=== PATIENT | female | born 1985 | race Two or more races ===

== ENCOUNTER 2024-12-20 12:27 | Emergency (ER) | payer MEDICAID, SELFPAY ==
[2024-12-20] VITALS (8 sets, daily range): BP systolic 119–125; BP diastolic 71–82; PULSE 82–99; RESP 16–18; TEMP 36.6–37.2; O2SAT 94–98; BMI 34.9
--- NOTE | 2024-12-20 12:47 | XR_ITS ---
Examination: AP chest single view Technique one AP portable upright chest single view Exam date and time: December 20, 2024 1256 hours INDICATIONS: Onset shortness of breath dyspnea today. FINDINGS: Normal heart size. Lungs are clear. The osseous structures are intact IMPRESSION: No active disease
--- NOTE | 2024-12-20 12:58 | EDNOTE_ITS ---
ED SOB =RME/HPI General Chief Complaint: Shortness of Breath/Dyspnea Stated Complaint: SOB Time Seen by Provider: 12/20/24 12:41 Arrival date/time: 12/20/24 12:27 RME / HPI RME / HPI Narrative: 39-year-old female patient with significant history of asthma, came in for evaluation regarding worsening shortness of breath and wheezing. Patient has been having worsening shortness of breath and wheezing for the last few weeks. Was seen in [place] emergency room last Tuesday and was prescribed prednisone 60 mg p.o. Patient is taking her asthma medications with good compliance. Patient denies any fever denies any cough denies any other complaints no medications taken prior to arrival. Related Data Previous Rx's ?Medication ?Instructions ?Recorded albuterol sulfate 90 mcg/actuation 2 puff inhalation Q 6HR PRN 06/12/17 aerosol inhaler (ProAir HFA) WHEEZING #1 inh albuterol sulfate 90 mcg/actuation 2 puff inhalation Q 6H #6.7 grams 03/18/18 aerosol inhaler prednisone 20 mg tablet 40 mg PO QDAY #12 tabs 12/20 Allergies Allergy/AdvReac Type Severity Reaction Status Date / Time paroxetine Allergy Unknown Verified 06/12/17 04:56 Review of Systems Review of Systems Narrative Review of Systems: Review of system reviewed and within normal limits except mentioned in HPI ED Exam Narrative Physical exam: VITAL SIGNS: Reviewed. GENERAL APPEARANCE: Alert and interactive, follows commands, no acute distress, HEAD AND FACE: Non-traumatic. ENT: PERRL, pink conjunctivitis, eyelid no trauma, Mucous membrane moist. NECK: Supple, nontender, no nuchal rigidity. CHEST: No tenderness, no crepitus, no paradoxical movement, no retractions. LUNGS: Symmetric, no rales, bilateral wheezing, no ronchi, no stridor, decreased breath sounds bilaterally. HEART: Regular rate, regular rhythm, no murmur, no gallops. ABDOMEN: Soft, positive bowel sounds, nondistended, no guarding, nontender, no rebound, no masses, RECTAL: Deferred. GENITAL: Deferred. NEUROLOGICAL: Gross motor function intact sensory function intact, Appropriate for age. MUSCULOSKELETAL: low back nontender, full range of motion. EXTREMITIES: Nontender, full range of motion. SKIN: Color pink, dry, no rash, no lacerations, no abrasions, no contusions. LYMPHATICS: Deferred. Course Quality Measures none Orders Category Date Time Status Bedside Influenza A&B Antigen Test NOW Care 12/20/24 12:47 Completed Continuous Pulse Oximetry NOW Care 12/20/24 12:47 Completed XR chest 1V portable Stat Exams 12/20/24 12:47 Completed ALBUTEROL RT 0.5ml [Proventil Rt 0.5ml] Med 12/20/24 12:47 Discontinued 10 mg INH X1 ONE Ipratropium [place] Rt Debi [Atrovent Rt Debi] Med 12/20/24 12:47 Discontinued 1 mg INH X1 ONE MethylPREDNISolone.* [SoluMEDROL Inj] Med 12/20/24 12:48 Discontinued 125 mg IVP X1 ONE Sodium Chloride Rt Debi 0.9% [NS Rt Debi 0.9%] Med 12/20/24 12:47 Active 3 ml INH PRN PRN Vital Signs Vital signs: Vital Signs Temperature 98.5 F 12/20/24 12:42 Pulse Rate 88 12/20/24 12:42 Respiratory Rate 18 12/20/24 12:42 Blood Pressure 122/71 12/20/24 12:42 Pulse Oximetry (%) 97 12/20/24 12:42 Oxygen Delivery Method Room Air 12/20/24 12:42 Shortness of Breath / Dyspnea MDM Narrative MDM Narrative:: 39-year-old female patient with significant history of asthma, came in for evaluation regarding worsening shortness of breath and wheezing. Patient has been having worsening shortness of breath and wheezing for the last few weeks. Was seen in [place] emergency room last Tuesday and was prescribed prednisone 60 mg p.o. Patient is taking her asthma medications with good compliance. Patient denies any fever denies any cough denies any other complaints no medications taken prior to arrival. I personally reviewed and interpreted the x-ray of this patient. There is no acute abnormalities found, no infiltrates no pneumothorax no hemothorax normal chest x-ray. Review of other structures was without significant abnormal findings also. I additionally reviewed the radiologist report and agree with the interpretation. Patient received Solu-Medrol IV , hour-long breathing treatment with significant improvement of symptoms. Patient was satting 96% on room air and told me that she is ready to go home. Yazidi Patient data External records reviewed:: None Clinical information provided by:: patient Social determinants that could affect healthcare access:: none Patient has the following chronic illnesses:: Asthma How is presenting disease/condition affected by chronic disease/condition?: exacerbated by Evaluation data The following diagnostics were reviewed and interpreted by me:: radiology exam(s) Lab and/or radiology exams considered but not ordered:: None Interpretation Summary: See results in [facility] Medications / Prescriptions Medications or Prescriptions considered but not ordered:: None Medication administrations:: Medication Administration History Sodium Chloride (Sodium Chloride Rt Debi 0.9% 3 Ml Nebu) 3 ml INH PRN PRN PRN Reason: SOLN Stop: 01/19/25 12:46 Last Admin: 12/20/24 13:26 Dose: 3 ml Documented By: VENKATESH Discontinued Medications Albuterol (Albuterol Rt 2.5 Mg/0.5 Ml Nebu) 10 mg INH X1 ONE Stop: 12/20/24 12:48 Last Admin: 12/20/24 13:25 Dose: 10 mg Documented By: VENKATESH Ipratropium [place] (Ipratropium Rt 0.5 Mg/ 2.5 Ml Nebu) 1 mg INH X1 ONE Stop: 12/20/24 12:48 Last Admin: 12/20/24 13:25 Dose: 1 mg Documented By: VENKATESH Methylprednisolone Sodium Succinate (Methylprednisolone Sod Succ 62.5 Mg/Ml 2ml Vial) 125 mg IVP X1 ONE Stop: 12/20/24 12:49 Last Admin: 12/20/24 14:14 Dose: 125 mg Documented By: TRENA Solu-Medrol IV, DuoNeb breathing treatment albuterol breathing treatment Consultations Consultation(s) initiated? (list below): No Diagnosis Shortness of Breath Differential Diagnosis: acute exacerbation of chronic obstructive airways disease, community acquired pneumonia and asthma with exacerbation Most likely diagnosis given after review of the tests above:: Asthma exacerbation Admission Indicated Admission indicated?: not indicated Admission Request Was there a request for admission?: No Disposition Plan Disposition Plan: Discharge Discharge Attestation Discharge Attestation: Patient condition: Stable Discharge Plan Plan Patient Disposition: HOME (Self Care) Disposition Comment: Stable Prescriptions/Referrals Prescriptions/Med Rec: New prednisone 20 mg tablet 40 mg PO QDAY Qty: 12 0RF Taper: Prednisone Taper 40 mg DAILY for 2 Days and 0 Hour 20 mg DAILY for 2 Days and 0 Hour 10 mg DAILY for 2 Days and 0 Hour Rx Instructions: 40 mg daily for 3 days, decrease to 20 mg daily for 3 days, decrease to 10 mg daily for 3 days No Action albuterol sulfate [ProAir HFA] 8.5 GM HFA aerosol inhaler 2 puff Inhalation Q6HR PRN (Reason: WHEEZING) Qty: 1 0RF albuterol sulfate 90 mcg/actuation HFA aerosol inhaler 2 puff INH Q6H Qty: 6.7 0RF Rx Instructions: administer with spacer Referrals: No Primary/Family,Physician [Primary Care Provider] - In 1 week Problem List Clinical Impression: Acute asthma exacerbation Patient/Caregiver Discharge Instructions Discharge Activity: activity as tolerated Education Materials: Asthma Additional Instructions: Thank you for the opportunity for serving you today. You are stable for discharged . You are advised to: Follow-up with your PCP in 1 to 2 days Return to ED for worsening of symptoms Increase oral fluids Take medication as prescribed Continue taking your prednisone 60 mg and then start tapering as prescribed Print Language: Dutch Stand Alone Forms: Annelise Award Info., Patient Portal Info Letter RHIANNA/MARLENA Supervising Physician RHIANNA/MARLENA Supervising Physician: Md Kang
[2024-12-20] MEDS: ALBUTEROL RT 2.5 MG/0.5 ML NEBU 10 MG INH (13:25)
[2024-12-20] MEDS: IPRATROPIUM RT 0.5 MG/ 2.5 ML NEBU 1 MG INH (13:25)
[2024-12-20] MEDS: SODIUM CHLORIDE RT SOL 0.9% 3 ML NEBU INH (13:26)
[2024-12-20] MEDS: MethylPREDNISolone SOD SUCC 62.5 MG/ML 2ML VIAL 125 MG IVP (14:14)
== END 2024-12-20 15:38 | disposition home or self-care (01) ==
PROVIDERS: Emergency Provider Emergency Medicine
DX: J45.901 Unspecified asthma with (acute) exacerbation (principal)
CPT/HCPCS: 71045; 87400; 94644; 96374; 99284; J2919